=== PATIENT | female | born 1960 | race Caucasian/White ===

== ENCOUNTER 2020-09-15 09:28 | Outpatient (CLI) | payer MEDICARE ==
--- NOTE | 2020-09-15 10:50 | CT ---
CT neck soft tissues with contrast: 09/15/2020 HISTORY: 60-year-old male with palpable right neck mass, and bilateral neck swelling. ICD-10: "R 59.9, swollen lymph nodes" FINDINGS: No enlarged lymph node, or any solid or cystic mass, is identified deep to the right external skin ma rker at the site of the palpable lump. There is no lymphadenopathy or solid or cystic mass anywhere in the neck. No pathology of thyroid gland or larynx identified. The sublingual, submandibular, parotid, carotid, parapharyngeal, retropharyngeal, pharyngeal mucosal, posterior cervical, perivertebral, fabric and accessories estimator, visceral, and posterior cervical, spaces, demonstrate no major pathology. IMPRESSION: Negative
[2020-09-15] MEDS ORDERED: Iopamidol-370 76% 500 ML 1 ML ONE (13:08)
== END 2020-09-15 09:29 | disposition home or self-care (01) ==
LOC: BICCT 09:28
PROVIDERS: ATTEND Student in an Organized Health Care Education/Training Program
DX: R59.0 Localized enlarged lymph nodes (principal)
CPT/HCPCS: 70491; 82565; Q9967